=== PATIENT | female | born 1960 | race Caucasian/White ===

== ENCOUNTER 2016-09-29 03:34 | Emergency (ER) | payer SELFPAY ==
[2016-09-29 03:45] VITALS: TEMP 97.5; BMI 33.4
[2016-09-29] MEDS ORDERED: MORPHINE 4 MG/ML INJECTION IV ONE (03:46)
[2016-09-29] MEDS ORDERED: PROMETHAZINE 25 MG/ML VIAL IV ONE (03:46)
[2016-09-29] MEDS ORDERED: NS 1,000 ML IV ONE (03:46)
--- NOTE | 2016-09-29 03:49 | EDPRACDOC ---
- General Information Chief Complaint: Flu-Like Symptoms Stated Complaint: BODYACHES, VOMITING Time Seen by Provider: 09/29/16 03:42 Information Source: Patient Mode Of Arrival: Car Home Medications: Home Medications Pregabalin [Lyrica] 200 mg PO TID 04/17/13 Ciprofloxacin HCl [Cipro] 500 mg PO BID #20 tab 08/23/16 Oxycodone HCl/Acetaminophen [Percocet 5-325 mg Tablet] 1 each PO Q4 #20 tablet 08/23/16 Promethazine [Phenergan] 25 mg PO Q8H PRN #30 tab 08/23/16 Promethazine [Phenergan] 25 mg PO Q6H PRN #10 tab 09/29/16 Sulfamethoxazole/Trimethoprim [Bactrim Ds Tablet] 1 tab PO BID #14 tab 09/29/16 Allergies/Adverse Reactions: Allergies Allergy/AdvReac Type Severity Reaction Status Date / Time hydromorphone HCl Allergy Severe See Verified 09/29/16 03:42 [From Joselyn] Comments - History of Present Illness Onset: Friday noon HPI: PT SAID THAT SHE HAS HAD N/V AND ABD PAIN SINCE YESTERDAY. SHE IS HERE FREQUENTLY FOR SIMILAR. SHE HAD A CT ABD/PELVIS ON 08/23 FOR THE SAME. Symptoms Occured: Reports: Spontaneous Duration: Reports: Intermittent Pain Quality: Reports: Sharp Pain Severity: Moderate Pain Location: Reports: Diffuse History of: Reports: Abdominal Surgery Relevant History of: Reports: Abdominal Surgery Associated Signs & Symptoms: Reports: Nausea, Vomiting Oral Intake: Decreased Urinary Output: Decreased ED Past Medical History - Patient Medical History Neurological History: Reports: Seizures Cardiac History: Reports: Heart Attack (2004), Hypercholesterolemia Psychological History: Denies: Depression Systemic History: Denies: Anemia Additional Past Medical History: CHRONIC PAIN, FIBROMYALGIA Surgical History: Reports: Cholecystectomy, Hysterectomy, Tonsillectomy/ Adnoidectomy - Family Medical History Reports: Hypertension (DAD), Diabetes (MOM, SISTER, DAUGHTER) - Social Medical History Smoking Status: Heavy tobacco smoker (5 or more cigarettes/day or daily pipe/ cigar) ETOH: None Substance Abuse: None Lives In: Home EDM Review of Systems - Review of Systems ROS Negative Except as Marked: Yes All systems reviewed and were negative except as marked Gastrointestinal: Nausea, Pain, Vomiting - Physical Exam Constitutional: Alert (Awake), No apparent distress Oriented to: Time, Person, Place Last recorded Vital Signs: Last Vital Signs Temp 97.5 F 09/29/16 03:42 Pulse 118 09/29/16 03:42 Resp 20 09/29/16 03:42 BP 169/109 H 09/29/16 03:42 Pulse Ox 96 09/29/16 03:42 Oxygen Pulse Oxygen Saturation 96 O2 Device Room Air Oxygen Flow Rate Fraction of Inspired Oxygen ( FIO2) - HEENT Head: Normal ( normocephalic) Eye Exam: Normal (PERRL, EOMI, Sclera white) Oropharynx: Membranes Dry ENT EAC: Normal TMJ: Normal Nose: No Symptoms Reported (septum midline) Neck: Normal (FROM, trachea at midline) - Respiratory/Cardiovascular Respiratory: Normal - CTA Cardiovascular: Tachycardia - GI Auscultation: Normal Palpation: Normal Tenderness: Diffuse, Mild - Musculoskeletal Back: Normal (Non-Tender) Extremities: Normal (Normal tone, Pulses 2+ No cyanosis or edema, FROM) - Integumentary Skin: Normal, Warm, Dry Lymphatics: Normal (no adenopathy) - Neurologic Memory Impaired: Normal Motor Function: Normal (Normal tone, Pulses 2+ No cyanosis or edema, FROM) Cranial Nerve: Normal (CN II-X11 intact sensation, strength 5/5) Cerebellar: Normal Mood Description: Normal Thought: Coherent Perception: Normal - Results 09/29/16 04:05 09/29/16 04:05 - Diagnostic Imaging Abdomen Image interpreted by: Radiologist 1. Unremarkable bowel gas pattern; no free intra-abdominal air seen. Small amount of stool noted in the colon. 2. Mild bibasilar opacities may reflect atelectasis or possibly mild pneumonia. Decision Time to Discharge: 04:55 - Departure Yes I personally saw and evaluated the patient. Disposition: Home Condition: Fair Final Diagnosis: Nausea and vomiting, UTI (urinary tract infection) Instructions: Urinary Tract Infection in Women (ED), Acute Nausea and Vomiting (ED) Education/Counseling Given To: Patient Education/Counseling Given Regarding: Diagnosis, Treatment, Follow Up Referrals: Mitchell Groves MD [Primary Care Provider] - One Week Prescriptions: New Promethazine [Phenergan] 25 mg PO Q6H PRN #10 tab PRN Reason: Nausea/Vomiting Sulfamethoxazole/Trimethoprim [Bactrim Ds Tablet] 1 tab PO BID #14 tab No Action Pregabalin [Lyrica] 200 mg PO TID Ciprofloxacin HCl [Cipro] 500 mg PO BID #20 tab Oxycodone HCl/Acetaminophen [Percocet 5-325 mg Tablet] 1 each PO Q4 #20 tablet Promethazine [Phenergan] 25 mg PO Q8H PRN #30 tab PRN Reason: Nausea/Vomiting
[2016-09-29 04:15] LABS: AUTOMATED BASOPHIL 0.7 % (0-2); AUTOMATED LYMPH 11.1 % (17-44); AUTOMATED MONOCYTE 4.4 % (3-10); AUTOMATED NEUTROPHIL 82.8 % (45-76); MPV 8.7 fL (7.4-10.4)
[2016-09-29 04:25] LABS: BLOOD UREA NITROGEN 12 MG/DL (7-17); CALCIUM 9.9 MG/DL (8.4-10.2); CALCULATED OSMOLALITY 271 MOs/Kg (270-290); CHLORIDE 103 mEq/L (98-107); GLUCOSE 128 MG/DL (70-99); SODIUM LEVEL 140 mEq/L (137-146)
--- NOTE | 2016-09-29 04:40 | DIRPT ---
CLINICAL DATA: Acute onset of generalized abdominal pain, nausea and vomiting. Initial encounter. EXAM: DG ABDOMEN ACUTE W/ 1V CHEST COMPARISON: CT of the abdomen and pelvis performed 08/23/2016 FINDINGS: The lungs are well-aerated. Mild bibasilar opacities may reflect atelectasis or possibly mild pneumonia. There is no evidence of pleural effusion or pneumothorax. The cardiomediastinal silhouette is within normal limits. The visualized bowel gas pattern is unremarkable. Scattered stool and air are seen within the colon; there is no evidence of small bowel dilatation to suggest obstruction. No free intra-abdominal air is identified on the provided upright view. Clips are noted within the right upper quadrant, reflecting prior cholecystectomy. No acute osseous abnormalities are seen; the sacroiliac joints are unremarkable in appearance. IMPRESSION: 1. Unremarkable bowel gas pattern; no free intra-abdominal air seen. Small amount of stool noted in the colon. 2. Mild bibasilar opacities may reflect atelectasis or possibly mild pneumonia. Electronically Signed By: Mj Uribe M.D. On: 09/29/2016 04:38
[2016-09-29 04:55] LABS: LEUKOCYTES/URINE 1+ (NEGATIVE); NITRITE/URINE NEG (NEGATIVE); URINE OCCULT BLOOD 1+ (NEG/TRACE)
[2016-09-29] MEDS ORDERED: PROMETHAZINE 25 MG TAB PO ONE (04:58)
[2016-09-29] MEDS ORDERED: OXYCODONE HCL 5 MG TABLET PO ONE (04:58)
[2016-09-29 05:20] VITALS: BP 168/109; PULSE 86
== END 2016-09-29 05:20 | disposition home or self-care (01) ==
LOC: ED 03:34
DX: N39.0 Urinary tract infection, site not specified (principal)
CPT/HCPCS: 36415; 74022; 80053; 81001; 83690; 85025; 96361; 96374; 96375; 96376; 99283; J2270; J2550; J3490

== ENCOUNTER 2016-09-29 15:42 | Emergency (ER) | payer SELFPAY ==
[2016-09-29 15:43] VITALS: BMI 33.4
[2016-09-29 16:45] VITALS: TEMP 97.8
--- NOTE | 2016-09-29 19:26 | EDPRACDOC ---
- General Information Chief Complaint: Abdominal Pain Stated Complaint: DX. UTI YESTERDAY ABD PAIN VOMITING NO FEVER Time Seen by Provider: 09/29/16 19:26 Information Source: Patient Mode Of Arrival: Car Home Medications: Home Medications Pregabalin [Lyrica] 200 mg PO TID 04/17/13 Levofloxacin [Levaquin] 750 mg PO DAILY #7 tab 09/29/16 Ondansetron HCl [Zofran] 4 mg PO Q8H PRN #15 tab 09/29/16 Promethazine HCl [Phenergan] 25 mg [place] Q8H PRN #12 supp 09/29/16 Promethazine [Phenergan] 25 mg PO Q6H PRN #10 tab 09/29/16 Sulfamethoxazole/Trimethoprim [Bactrim Ds Tablet] 1 tab PO BID #14 tab 09/29/16 Allergies/Adverse Reactions: Allergies Allergy/AdvReac Type Severity Reaction Status Date / Time hydromorphone HCl Allergy Severe See Verified 09/29/16 16:45 [From Dilaudid] Comments - History of Present Illness Onset: 2 days HPI: Pt c/o lower abd pain, n/v x 10-12 episodes in 24 hours. Pt states dx with UTI last night and unable to keep meds down. Denies fever, cp, sob, changes in bowel or bladder, rash. C/o cough. Pain Location: Reports: Suprapubic Pain Context: Reports: Spontaneous Pain Severity: Moderate Pain Quality: Reports: Aching Pain Radiation: Reports: No Radiation Female Abdominal History: Reports: UTI Modifying Factors: improves with: Nothing Female Associated Signs & Symptoms: Reports: Nausea, Vomiting Oral Intake: Decreased Urinary Output: Normal ED Past Medical History - History Reviewed Yes Nurses notes reviewed and agree except as marked - Patient Medical History Neurological History: Reports: Seizures Cardiac History: Reports: Heart Attack (2004), Hypercholesterolemia Psychological History: Denies: Depression Systemic History: Denies: Anemia Additional Past Medical History: CHRONIC PAIN, FIBROMYALGIA Surgical History: Reports: Cholecystectomy, Hysterectomy, Tonsillectomy/ Adnoidectomy - Family Medical History Reports: Hypertension (DAD), Diabetes (MOM, SISTER, DAUGHTER) - Social Medical History Smoking Status: Heavy tobacco smoker (5 or more cigarettes/day or daily pipe/ cigar) ETOH: None Substance Abuse: None EDM Review of Systems - Review of Systems Constitutional: No Symptoms Reported. negative: Fever, Chills, Weakness, Fatigue, Loss of Appetite Ears: No Symptoms Reported. negative: Pain, Hearing Loss, Drainage, Ear Pulling Throat: No Symptoms Reported. negative: Pain, Swelling Nose: No Symptoms Reported. negative: Congestion, Bleeding, Discharge, Injection, Swelling, Deformity, Ecchymosis, Tender, Abrasion, Laceration Mouth: No Symptoms Reported. negative: Pain, Drooling Respiratory: Cough Cardiovascular: No Symptoms Reported. negative: Chest Pain, Palpitations, Syncope, Edema, Orthopnea, PND, Skin Mottling, Cyanosis Gastrointestinal: Nausea, Pain, Vomiting Genitourinary: No Symptoms Reported. negative: Dysuria, Hematuria, Frequency, Discharge, Bleeding, Testicular Pain, Neurological: No Symptoms Reported. negative: Headache, Dizziness, Seizure, Numbness, Weakness, Speech Difficulty, Gait Difficulty Musculoskeletal: No Symptoms Reported. negative: Neck, Chestwall, Ribs, Back, Shoulder, Arm, Elbow, Forearm, Wrist, Hand, Pelvis, Hip, Femur, Knee, Leg, Ankle , Foot Integumentary: No Symptoms Reported. negative: Itching, Rash, Bruising, Wound Allergic/Immunologic: No Symptoms Reported. negative: Hives, Itching Hematologic: No Symptoms Reported. negative: Lymphadenopathy, Easy Bruising, Easy Bleeding Psychiatric: No Symptoms Reported. negative: Anxiety, Depression, Hallucinations, Insomnia, Suicidal - Physical Exam Constitutional: Alert, Distress (mild) Oriented to: Time, Person, Place Last recorded Vital Signs: Last Vital Signs Temp 97.8 F 09/29/16 16:43 Pulse 95 09/29/16 20:49 Resp 18 09/29/16 20:49 BP 156/109 H 09/29/16 20:49 Pulse Ox 94 09/29/16 20:49 Oxygen Pulse Oxygen Saturation 94 O2 Device Room Air Oxygen Flow Rate Fraction of Inspired Oxygen ( FIO2) - HEENT Head: Normal ( normocephalic) Eye Exam: Normal (PERRL, EOMI, Sclera white) Oropharynx: Membranes Dry Tympanic Membrane: Normal ENT EAC: Normal Nose: No Symptoms Reported (septum midline) Neck: Normal (FROM, trachea at midline) - Respiratory/Cardiovascular Respiratory: Normal - CTA (BBS clear to auscultation without adventitious sounds ) Cardiovascular: Tachycardia - GI Auscultation: Normal (NABS) Palpation: Normal (Soft,No rebound or guarding, non distended) Tenderness: Mild, Suprapubic - Musculoskeletal Back: Normal (Non-Tender) Extremities: Normal (Normal tone, Pulses 2+ No cyanosis or edema, FROM) - Integumentary Skin: Normal, Warm, Dry Lymphatics: Normal (no adenopathy) - Neurologic Memory Impaired: Normal Motor Function: Normal (Normal tone, Pulses 2+ No cyanosis or edema, FROM) Mood Description: Normal Perception: Normal - Differential Diagnosis Gastroenteritis, Pneumonia, UTI, Other (pyelonephritis) - Results 09/29/16 20:38 09/29/16 20:38 WBC 5.8 xk/uL (3.8-10.8) 09/29/16 20:38 RBC 4.87 xM/uL (4.20-5.40) 09/29/16 20:38 Hgb 12.6 g/dL (12.0-16.0) 09/29/16 20:38 Hct 38.2 % (36-47) 09/29/16 20:38 MCV 78 fL (81-99) L 09/29/16 20:38 MCH 25.9 pg (27-32) L 09/29/16 20:38 MCHC 33.1 g/dl (33-36) 09/29/16 20:38 RDW 15.8 % (11.5-14.5) H 09/29/16 20:38 Plt Count 191 xk/uL (130-400) 09/29/16 20:38 MPV 8.8 fL (7.4-10.4) 09/29/16 20:38 Neut % (Auto) 64.3 % (45-76) 09/29/16 20:38 Lymph % (Auto) 27.3 % (17-44) 09/29/16 20:38 [place] % (Auto) 7.1 % (3-10) 09/29/16 20:38 Eos % (Auto) 0.9 % (0-5) 09/29/16 20:38 Baso % (Auto) 0.4 % (0-2) 09/29/16 20:38 Absolute Neuts (auto) 3.71 xk/uL (1.7-8.2) 09/29/16 20:38 Absolute Lymphs (auto) 1.57 xk/uL (0.65-4.75) 09/29/16 20:38 Sodium 140 mEq/L (137-146) 09/29/16 20:38 Potassium 3.5 mEq/L (3.5-5.1) 09/29/16 20:38 Chloride 106 mEq/L (98-107) 09/29/16 20:38 Carbon Dioxide 22 mMOL/L (22-33) 09/29/16 20:38 Anion Gap 16 mEq/L (8-16) 09/29/16 20:38 BUN 10 MG/DL (7-17) 09/29/16 20:38 Creatinine 0.90 MG/DL (0.52-1.04) 09/29/16 20:38 Estimated GFR (MDRD) > 60 mL/min (>=60) 09/29/16 20:38 Glucose 103 MG/DL (70-99) H 09/29/16 20:38 Calculated Osmolality 268 MOs/Kg (270-290) L 09/29/16 20:38 Lactic Acid 0.8 mEq/L (0.7-2.1) 09/29/16 20:38 Calcium 9.2 MG/DL (8.4-10.2) 09/29/16 20:38 Total Bilirubin 0.5 MG/DL (0.2-1.3) 09/29/16 20:38 AST 22 IU/L (14-36) 09/29/16 20:38 ALT 30 IU/L (9-52) 09/29/16 20:38 Alkaline Phosphatase 137 IU/L (38-126) H 09/29/16 20:38 Total Protein 7.6 G/DL (6.3-8.2) 09/29/16 20:38 Albumin 4.0 G/DL (3.5-5.0) 09/29/16 20:38 Lab Results 09/29/16 09/29/16 09/29/16 20:38 20:38 20:38 WBC 5.8 RBC 4.87 Hgb 12.6 Hct 38.2 MCV 78 L MCH 25.9 L MCHC 33.1 RDW 15.8 H Plt Count 191 MPV 8.8 Neut % (Auto) 64.3 Lymph % (Auto) 27.3 [place] % (Auto) 7.1 Eos % (Auto) 0.9 Baso % (Auto) 0.4 Absolute Neuts (auto) 3.71 Absolute Lymphs (auto) 1.57 Sodium 140 Potassium 3.5 Chloride 106 Carbon Dioxide 22 Anion Gap 16 BUN 10 Creatinine 0.90 Estimated GFR (MDRD) > 60 Glucose 103 H Calculated Osmolality 268 L Lactic Acid 0.8 Calcium 9.2 Total Bilirubin 0.5 AST 22 ALT 30 Alkaline Phosphatase 137 H Total Protein 7.6 Albumin 4.0 - Diagnostic Imaging Chest Image interpreted by: Radiologist 09/29/16 21:04 IMPRESSION: Hypoventilatory chest. Bibasilar opacities favor atelectasis, however superimposed pneumonia would be difficult to exclude in the medial right lower lobe. There is bronchial thickening. Decision Time to Discharge: 21:17 - Departure Disposition: Home Condition: Good Final Diagnosis: N&V (nausea and vomiting) Qualifiers: Vomiting type: unspecified Vomiting Intractability: non-intractable Qualified Code(s): R11.2 - Nausea with vomiting, unspecified RML pneumonia Qualifiers: Pneumonia type: due to unspecified organism Qualified Code(s): J18.1 - Lobar pneumonia, unspecified organism Instructions: Acute Nausea and Vomiting (ED), Community Acquired Pneumonia (ED) Education/Counseling Given To: Patient Education/Counseling Given Regarding: Diagnosis, Treatment, Follow Up Referrals: Mitchell Groves MD [Primary Care Provider] - One Week Prescriptions: New Levofloxacin [Levaquin] 750 mg PO DAILY #7 tab Ondansetron HCl [Zofran] 4 mg PO Q8H PRN #15 tab PRN Reason: Nausea/Vomiting Promethazine HCl [Phenergan] 25 mg [place] Q8H PRN #12 supp PRN Reason: Nausea/Vomiting No Action Pregabalin [Lyrica] 200 mg PO TID Promethazine [Phenergan] 25 mg PO Q6H PRN #10 tab PRN Reason: Nausea/Vomiting Sulfamethoxazole/Trimethoprim [Bactrim Ds Tablet] 1 tab PO BID #14 tab Additional Instructions: Stop Bactrim. Start Levaquin. Drink sips of Gatorade every 2-3 minutes while awake. Do NOT drink large volumes of fluid at once. If you vomit, take the nausea-vomiting medicine prescribed, wait ~ 30 minutes, and restart the sipping process. Return to the Emergency Department if you think you are getting dehydrated, have persistent abdominal pain that is unrelenting, have worse or different symptoms, or any concerns.
[2016-09-29] MEDS ORDERED: NS 1,000 ML IV ONE (19:27)
[2016-09-29] MEDS ORDERED: ONDANSETRON HCL 4 MG/2 ML VIAL IV ONE (19:27)
[2016-09-29] MEDS ORDERED: MORPHINE 4 MG/ML INJECTION IV ONE (19:37)
[2016-09-29] MEDS ORDERED: NS 1,000 ML IV SCH (20:00)
--- NOTE | 2016-09-29 20:35 | DIRPT ---
CLINICAL DATA: Cough for 2 weeks, vomiting and back pain for 2 days. Increased pain, cough and vomiting today. EXAM: CHEST 2 VIEW COMPARISON: 08/01/2014 FINDINGS: Lung volumes are low. Bibasilar opacities likely atelectasis. This is most significant in the medial right lung base. There is central bronchial thickening. Heart size and mediastinal contours are normal for technique. No pulmonary edema, pleural effusion or pneumothorax. No acute osseous abnormalities are seen. IMPRESSION: Hypoventilatory chest. Bibasilar opacities favor atelectasis, however superimposed pneumonia would be difficult to exclude in the medial right lower lobe. There is bronchial thickening. Electronically Signed By: Ximena Johnson M.D. On: 09/29/2016 20:33
[2016-09-29 20:53] LABS: AUTOMATED BASOPHIL 0.4 % (0-2); AUTOMATED EOSINOPHIL 0.9 % (0-5); AUTOMATED LYMPH 27.3 % (17-44); AUTOMATED MONOCYTE 7.1 % (3-10); AUTOMATED NEUTROPHIL 64.3 % (45-76); MPV 8.8 fL (7.4-10.4)
[2016-09-29 21:09] LABS: BLOOD UREA NITROGEN 10 MG/DL (7-17); CALCIUM 9.2 MG/DL (8.4-10.2); CALCULATED OSMOLALITY 268 MOs/Kg (270-290); CHLORIDE 106 mEq/L (98-107); GLUCOSE 103 MG/DL (70-99); SODIUM LEVEL 140 mEq/L (137-146); TOTAL PROTEIN 7.6 G/DL (6.3-8.2)
[2016-09-29] MEDS ORDERED: PROMETHAZINE 25 MG/ML VIAL IV ONE (21:40)
[2016-09-29 22:11] VITALS: BP 160/102; PULSE 92
== END 2016-09-29 22:14 | disposition home or self-care (01) ==
LOC: EDMC 15:42
DX: J18.1 Lobar pneumonia, unspecified organism (principal); R11.2 Nausea with vomiting, unspecified
CPT/HCPCS: 36415; 71020; 80053; 83605; 85025; 96361; 96374; 96375; 99284; J2270; J2405; J2550

== ENCOUNTER 2016-10-02 03:11 | Emergency (ER) | payer SELFPAY ==
[2016-10-02 03:11] VITALS: BMI 33.4
--- NOTE | 2016-10-02 03:34 | EDPRACDOC ---
- General Information Stated Complaint: NAUSEA & VOMITING Time Seen by Provider: 10/02/16 03:28 Home Medications: Home Medications Pregabalin [Lyrica] 200 mg PO TID 04/17/13 Levofloxacin [Levaquin] 750 mg PO DAILY #7 tab 09/29/16 Ondansetron HCl [Zofran] 4 mg PO Q8H PRN #15 tab 09/29/16 Promethazine HCl [Phenergan] 25 mg [place] Q8H PRN #12 supp 09/29/16 Promethazine [Phenergan] 25 mg PO Q6H PRN #10 tab 09/29/16 Sulfamethoxazole/Trimethoprim [Bactrim Ds Tablet] 1 tab PO BID #14 tab 09/29/16 Allergies/Adverse Reactions: Allergies Allergy/AdvReac Type Severity Reaction Status Date / Time hydromorphone HCl Allergy Severe See Verified 09/29/16 16:45 [From Dilaudid] Comments - History of Present Illness HPI: NAUSEA AND VOMITING SINCE EATING A GRILLED CHEESE FOR LUNG. BEING TREATED FOR UTI (BACTRIM) FOR 3 DAYS. PT HAD N/V FRIDAY WELL. TODAY WAS THE FIRST TIME SHE TRIED TO EAT ANYTHING. PAIN IN EPIGASTRIUM. History of: Reports: UTI ED Past Medical History - History Reviewed Yes Nurses notes reviewed and agree except as marked - Patient Medical History Neurological History: Reports: Seizures Cardiac History: Reports: Heart Attack (2004), Hypercholesterolemia GI/ History: Reports: Urinary Tract Infection Psychological History: Denies: Depression Systemic History: Denies: Anemia Additional Past Medical History: CHRONIC PAIN, FIBROMYALGIA Surgical History: Reports: Cholecystectomy, Hysterectomy, Tonsillectomy/ Adnoidectomy - Family Medical History Reports: Hypertension (DAD), Diabetes (MOM, SISTER, DAUGHTER) - Social Medical History Smoking Status: Heavy tobacco smoker (5 or more cigarettes/day or daily pipe/ cigar) EDM Review of Systems - Review of Systems ROS Negative Except as Marked: Yes All systems reviewed and were negative except as marked Constitutional: No Symptoms Reported Respiratory: No Symptoms Reported Gastrointestinal: Nausea, Pain, Vomiting Neurological: No Symptoms Reported - Physical Exam Constitutional: Alert (Awake), No apparent distress Oriented to: Time, Person, Place Last recorded Vital Signs: Oxygen Pulse Oxygen Saturation O2 Device Oxygen Flow Rate Fraction of Inspired Oxygen ( FIO2) - HEENT Head: Normal ( normocephalic) Eye Exam: Normal (PERRL, EOMI, Sclera white) Oropharynx: Normal (Pharynx:Moist without exudate,Gums-no swelling) Nose: No Symptoms Reported (septum midline) Neck: Normal (FROM, trachea at midline) - Respiratory/Cardiovascular Respiratory: Normal - CTA (BBS clear to auscultation without adventitious sounds ) Cardiovascular: Tachycardia - GI Auscultation: Normal (NABS) Palpation: Normal (Soft,No rebound or guarding, non distended) Tenderness: Non tender Hayes's Sign: Negative - Musculoskeletal Back: Normal (Non-Tender) Extremities: Normal (Normal tone, Pulses 2+ No cyanosis or edema, FROM) - Integumentary Skin: Normal, Warm, Dry Lymphatics: Normal (no adenopathy) - Neurologic Memory Impaired: Normal Motor Function: Normal (Normal tone, Pulses 2+ No cyanosis or edema, FROM) Cranial Nerve: Normal (CN II-X11 intact sensation, strength 5/5) Cerebellar: Normal Mood Description: Normal Perception: Normal - Results 10/02/16 03:55 10/02/16 03:55 - EKG EKG #1 EKG Time: 03:48 -: Yes EKG interpreted by me Rate: bpm: 93 [place]: Normal Rhythm: NSR Block: None Hypertrophy: None ST: Normal Comments: NORMAL EKG - Departure Yes I personally saw and evaluated the patient. Disposition: Home Condition: Stable Final Diagnosis: Abdominal pain N&V (nausea and vomiting) Qualifiers: Vomiting type: unspecified Vomiting Intractability: non-intractable Qualified Code(s): R11.2 - Nausea with vomiting, unspecified Instructions: Acute Nausea and Vomiting (ED) Referrals: None,No Provider [Primary Care Provider] - One Week Prescriptions: No Action Pregabalin [Lyrica] 200 mg PO TID Promethazine [Phenergan] 25 mg PO Q6H PRN #10 tab PRN Reason: Nausea/Vomiting Sulfamethoxazole/Trimethoprim [Bactrim Ds Tablet] 1 tab PO BID #14 tab Levofloxacin [Levaquin] 750 mg PO DAILY #7 tab Ondansetron HCl [Zofran] 4 mg PO Q8H PRN #15 tab PRN Reason: Nausea/Vomiting Promethazine HCl [Phenergan] 25 mg [place] Q8H PRN #12 supp PRN Reason: Nausea/Vomiting
[2016-10-02] MEDS ORDERED: NS 1,000 ML IV ONE (03:39)
[2016-10-02] MEDS ORDERED: PROMETHAZINE 25 MG/ML VIAL IV ONE (03:39)
[2016-10-02 03:42] VITALS: TEMP 99.3
[2016-10-02 04:07] LABS: MPV 8.8 fL (7.4-10.4)
[2016-10-02 04:21] LABS: BLOOD UREA NITROGEN 15 MG/DL (7-17); CALCIUM 9.6 MG/DL (8.4-10.2); CALCULATED OSMOLALITY 269 MOs/Kg (270-290); CHLORIDE 108 mEq/L (98-107); GLUCOSE 94 mg/dL (70-99); SODIUM LEVEL 139 mEq/L (137-146); TOTAL PROTEIN 7.5 G/DL (6.3-8.2)
[2016-10-02] MEDS ORDERED: MORPHINE 4 MG/ML INJECTION IV ONE (04:29)
[2016-10-02] MEDS ORDERED: ONDANSETRON HCL 4 MG/2 ML VIAL IV ONE (04:53)
[2016-10-02 04:59] LABS: LEUKOCYTES/URINE NEG (NEGATIVE); NITRITE/URINE NEG (NEGATIVE); URINE OCCULT BLOOD NEG (NEG/TRACE); WBC/URINE 0-2 (0-5)
[2016-10-02 05:53] VITALS: BP 148/100; PULSE 86
== END 2016-10-02 05:45 | disposition home or self-care (01) ==
LOC: ED 03:11
DX: R11.2 Nausea with vomiting, unspecified (principal); R10.9 Unspecified abdominal pain
CPT/HCPCS: 36415; 80053; 81001; 85027; 87086; 93005; 96361; 96374; 96375; 99283; J2270; J2405; J2550

== ENCOUNTER 2016-10-04 14:38 | Emergency (ER) | payer SELFPAY ==
[2016-10-04] MEDS ORDERED: ONDANSETRON HCL 4 MG/2 ML VIAL IV ONE (14:44)
[2016-10-04] MEDS ORDERED: SODIUM CHLORIDE 0.9% 3 ML FLUSH FLUSH PRN (14:44)
[2016-10-04] MEDS ORDERED: MORPHINE 4 MG/ML INJECTION IV ONE (14:44)
[2016-10-04 14:47] VITALS: TEMP 98; BMI 33.3
--- NOTE | 2016-10-04 14:52 | EDPRACDOC ---
- General Information Stated Complaint: BACK PAIN N/V Time Seen by Provider: 10/04/16 14:43 Information Source: Patient, Sales Support Coordinator Mode Of Arrival: Ambulance Home Medications: Home Medications Pregabalin [Lyrica] 200 mg PO TID 04/17/13 Sulfamethoxazole/Trimethoprim [Bactrim Ds Tablet] 1 tab PO BID #14 tab 09/29/16 Promethazine [Phenergan] 25 mg PO Q8H PRN #15 tab 10/02/16 Promethazine [Phenergan] 25 mg SD Q6H PRN #12 supp 10/02/16 Ibuprofen [Motrin Ib] 600 mg PO Q6-8H PRN 10/04/16 Ketorolac Tromethamine [Toradol] 10 mg PO Q6H PRN #20 tab 10/04/16 Ondansetron [Zofran Odt] 4 mg PO Q6H #20 tab.rapdis 10/04/16 Allergies/Adverse Reactions: Allergies Allergy/AdvReac Type Severity Reaction Status Date / Time hydromorphone HCl Allergy Severe See Verified 10/04/16 14:46 [From Dilaudid] Comments - History of Present Illness Onset: 1 WK HPI: PT PRESENTS TO ED WITH RT FLANK AND ABD PAIN WITH N/V STATES SHE HAS H/O STONES. PT HAS BEEN SEEN HERE MULTIPLE TIMES FOR ABD PAIN AND UTI AND WAS ON BACTRIM AND LAST URINE WAS GETTING BETTER WITHOUT WBC'S. Pain Location: Reports: Flank (RT) Pain Context: Reports: Spontaneous Pain Severity: Moderate Pain Quality: Reports: Sharp, Stabbing Pain Radiation: Reports: No Radiation Blood Type: Unknown Female Abdominal History: Reports: UTI Female Associated Signs & Symptoms: Reports: Nausea, Vomiting Oral Intake: Normal Urinary Output: Normal - Treatment Prior to ED Arrival Reported Medications/Treatment C T TECH Treated With Medication C T TECH YES Ibuprofen/Acetaminophen (Dose/ MOTRIN 600MG-1300 Time) Medications C T TECH (Medication/ PHENERGAN 25MG-1330 Dose/Time) EMS Treatment BLS IV No ED Past Medical History - History Reviewed Yes Nurses notes reviewed and agree except as marked Travel Outside of [place] in the Last 3 Months?: No - Patient Medical History Neurological History: Reports: Seizures Cardiac History: Reports: Heart Attack (2004), Hypercholesterolemia GI/ History: Reports: Urinary Tract Infection Psychological History: Denies: Depression Systemic History: Denies: Anemia Additional Past Medical History: CHRONIC PAIN, FIBROMYALGIA Surgical History: Reports: Cholecystectomy, Hysterectomy, Tonsillectomy/ Adnoidectomy - Family Medical History Reports: Hypertension (DAD), Diabetes (MOM, SISTER, DAUGHTER) - Social Medical History Smoking Status: Never smoker ETOH: None Substance Abuse: None Lives With: Other Lives In: Home EDM Review of Systems - Review of Systems ROS Negative Except as Marked: Yes All systems reviewed and were negative except as marked Constitutional: No Symptoms Reported. negative: Fever, Chills, Weakness, Fatigue, Loss of Appetite Eyes: No Symptoms Reported. negative: Redness, Blurred Vision, Double Vision, Discharge, Pain, Light Sensitive, Photophobia Ears: No Symptoms Reported. negative: Pain, Hearing Loss, Drainage, Ear Pulling Throat: No Symptoms Reported. negative: Pain, Swelling Nose: No Symptoms Reported. negative: Congestion, Bleeding, Discharge, Injection, Swelling, Deformity, Ecchymosis, Tender, Abrasion, Laceration Mouth: No Symptoms Reported. negative: Pain, Drooling Respiratory: No Symptoms Reported. negative: Cough, Brassy Cough, Barky Cough, Shortness of Breath, Wheezing, Hemoptysis Cardiovascular: No Symptoms Reported. negative: Chest Pain, Palpitations, Syncope, Edema, Orthopnea, PND, Skin Mottling, Cyanosis Gastrointestinal: Nausea, Pain, Vomiting. negative: Constipation, Diarrhea, Formula Intolerance, Melena Genitourinary: Frequency, Flank Pain (RT), Urgency to urinate. negative: Bleeding, Discharge, Hematuria, , Testicular Pain Neurological: No Symptoms Reported. negative: Headache, Dizziness, Seizure, Numbness, Weakness, Speech Difficulty, Gait Difficulty Musculoskeletal: No Symptoms Reported. negative: Neck, Chestwall, Ribs, Back, Shoulder, Arm, Elbow, Forearm, Wrist, Hand, Pelvis, Hip, Femur, Knee, Leg, Ankle , Foot Integumentary: No Symptoms Reported. negative: Itching, Rash, Bruising, Wound Allergic/Immunologic: No Symptoms Reported. negative: Hives, Itching Hematologic: No Symptoms Reported. negative: Lymphadenopathy, Easy Bruising, Easy Bleeding Endocrine: No Symptoms Reported. negative: Weight Gain, Weight Loss Psychiatric: No Symptoms Reported. negative: Anxiety, Depression, Hallucinations, Insomnia, Suicidal - Physical Exam Constitutional: No apparent distress, Alert (Awake) Oriented to: Time, Person, Place Last recorded Vital Signs: Last Vital Signs Temp 98.0 F 10/04/16 14:40 Pulse 89 10/04/16 16:09 Resp 18 10/04/16 16:09 BP 157/91 10/04/16 16:09 Pulse Ox 91 10/04/16 16:09 Oxygen Pulse Oxygen Saturation 91 O2 Device Oxygen Flow Rate Fraction of Inspired Oxygen ( FIO2) - HEENT Head: Normal ( normocephalic) Eye Exam: Normal (PERRL, EOMI, Sclera white) Oropharynx: Normal (Pharynx:Moist without exudate,Gums-no swelling) Tympanic Membrane: Normal ENT EAC: Normal TMJ: Normal Nose: No Symptoms Reported (septum midline) Neck: Normal (FROM, trachea at midline) - Respiratory/Cardiovascular Respiratory: Normal - CTA (BBS clear to auscultation without adventitious sounds ) Cardiovascular: Normal (RRR without murmur, gallop or rub) - GI Auscultation: Normal (NABS) Palpation: Normal (Soft,No rebound or guarding, non distended) Tenderness: Mild, Other (RIGHT SIDED ABDOMEN) Hayes's Sign: Negative - Bladder: Normal - Musculoskeletal Back: Normal (Non-Tender) Extremities: Normal (Normal tone, Pulses 2+ No cyanosis or edema, FROM) - Integumentary Skin: Normal, Warm, Dry Lymphatics: Normal (no adenopathy) - Neurologic Memory Impaired: Normal Motor Function: Normal (Normal tone, Pulses 2+ No cyanosis or edema, FROM) Cranial Nerve: Normal (CN II-X11 intact sensation, strength 5/5) Cerebellar: Normal Mood Description: Normal Perception: Normal - Differential Diagnosis Constipation, Urolithiasis, UTI, Other (COLITIS) - Results 10/04/16 15:15 10/04/16 15:15 WBC 6.9 xk/uL (3.8-10.8) 10/04/16 15:15 RBC 4.80 xM/uL (4.20-5.40) 10/04/16 15:15 Hgb 12.6 g/dL (12.0-16.0) 10/04/16 15:15 Hct 37.9 % (36-47) 10/04/16 15:15 MCV 79 fL (81-99) L 10/04/16 15:15 MCH 26.2 pg (27-32) L 10/04/16 15:15 MCHC 33.2 g/dl (33-36) 10/04/16 15:15 RDW 16.6 % (11.5-14.5) H 10/04/16 15:15 Plt Count 236 xk/uL (130-400) 10/04/16 15:15 MPV 8.8 fL (7.4-10.4) 10/04/16 15:15 Neut % (Auto) 70.4 % (45-76) 10/04/16 15:15 Lymph % (Auto) 22.8 % (17-44) 10/04/16 15:15 Ponce % (Auto) 5.7 % (3-10) 10/04/16 15:15 Eos % (Auto) 0.9 % (0-5) 10/04/16 15:15 Baso % (Auto) 0.2 % (0-2) 10/04/16 15:15 Absolute Neuts (auto) 4.83 xk/uL (1.7-8.2) 10/04/16 15:15 Absolute Lymphs (auto) 1.52 xk/uL (0.65-4.75) 10/04/16 15:15 Sodium 140 mEq/L (137-146) 10/04/16 15:15 Potassium 3.6 mEq/L (3.5-5.1) 10/04/16 15:15 Chloride 108 mEq/L (98-107) H 10/04/16 15:15 Carbon Dioxide 20 mMOL/L (22-33) L 10/04/16 15:15 Anion Gap 16 mEq/L (8-16) 10/04/16 15:15 BUN 10 MG/DL (7-17) 10/04/16 15:15 Creatinine 0.90 MG/DL (0.52-1.04) 10/04/16 15:15 Estimated GFR (MDRD) > 60 mL/min (>=60) 10/04/16 15:15 Glucose 109 mg/dL (70-99) H 10/04/16 15:15 Calculated Osmolality 269 MOs/Kg (270-290) L 10/04/16 15:15 Calcium 9.8 MG/DL (8.4-10.2) 10/04/16 15:15 Total Bilirubin 0.5 MG/DL (0.2-1.3) 10/04/16 15:15 AST 20 IU/L (14-36) 10/04/16 15:15 ALT 25 IU/L (9-52) 10/04/16 15:15 Alkaline Phosphatase 142 IU/L (38-126) H 10/04/16 15:15 Total Protein 7.8 G/DL (6.3-8.2) 10/04/16 15:15 Albumin 4.5 G/DL (3.5-5.0) 10/04/16 15:15 Urine Color Yellow 10/04/16 15:20 Urine Clarity Clear 10/04/16 15:20 Urine pH 6.0 (5.0-8.0) 10/04/16 15:20 Ur Specific [place] 1.005 (1.003-1.035) 10/04/16 15:20 Urine Protein Neg (NEG/TRACE) 10/04/16 15:20 Urine Glucose (UA) Neg (NEGATIVE) 10/04/16 15:20 Urine Ketones Neg (NEGATIVE) 10/04/16 15:20 Urine Occult Blood 1+ (NEG/TRACE) H 10/04/16 15:20 Urine Nitrite Neg (NEGATIVE) 10/04/16 15:20 Urine Bilirubin Neg (NEGATIVE) 10/04/16 15:20 Urine Urobilinogen <2.0 MG/DL (0-1) 10/04/16 15:20 Ur Leukocyte Esterase Neg (NEGATIVE) 10/04/16 15:20 Urine RBC 0-2 (0-5) 10/04/16 15:20 Urine WBC 0-2 (0-5) 10/04/16 15:20 Ur Epithelial Cells 1+ 10/04/16 15:20 Urine Bacteria 2+ (NEG/FEW) H 10/04/16 15:20 Urine Opiates Screen Neg (NEGATIVE) 10/04/16 15:20 Ur Oxycodone Screen *positive* (NEGATIVE) H 10/04/16 15:20 Urine Methadone Screen Neg (NEGATIVE) 10/04/16 15:20 Ur Barbiturates Screen Neg (NEGATIVE) 10/04/16 15:20 Ur Tricyclics Screen Neg (NEGATIVE) 10/04/16 15:20 Ur Phencyclidine Scrn Neg (NEGATIVE) 10/04/16 15:20 Ur Amphetamines Screen Neg (NEGATIVE) 10/04/16 15:20 U Methamphetamines Scrn Neg (NEGATIVE) 10/04/16 15:20 Urine MDMA Screen Neg (NEGATIVE) 10/04/16 15:20 U Benzodiazepines Scrn Neg (NEGATIVE) 10/04/16 15:20 Urine Cocaine Screen Neg (NEGATIVE) 10/04/16 15:20 Ur THC Screen Neg (NEGATIVE) 10/04/16 15:20 Lab Results 10/04/16 10/04/16 10/04/16 15:20 15:20 15:15 WBC 6.9 RBC 4.80 Hgb 12.6 Hct 37.9 MCV 79 L MCH 26.2 L MCHC 33.2 RDW 16.6 H Plt Count 236 MPV 8.8 Neut % (Auto) 70.4 Lymph % (Auto) 22.8 Ponce % (Auto) 5.7 Eos % (Auto) 0.9 Baso % (Auto) 0.2 Absolute Neuts (auto) 4.83 Absolute Lymphs (auto) 1.52 Sodium Potassium Chloride Carbon Dioxide Anion Gap BUN Creatinine Estimated GFR (MDRD) Glucose Calculated Osmolality Calcium Total Bilirubin AST ALT Alkaline Phosphatase Total Protein Albumin Urine Color Yellow Urine Clarity Clear Urine pH 6.0 Ur Specific [place] 1.005 Urine Protein Neg Urine Glucose (UA) Neg Urine Ketones Neg Urine Occult Blood 1+ H Urine Nitrite Neg Urine Bilirubin Neg Urine Urobilinogen <2.0 Ur Leukocyte Esterase Neg Urine RBC 0-2 Urine WBC 0-2 Ur Epithelial Cells 1+ Urine Bacteria 2+ H Urine Opiates Screen Neg Ur Oxycodone Screen *positive* H Urine Methadone Screen Neg Ur Barbiturates Screen Neg Ur Tricyclics Screen Neg Ur Phencyclidine Scrn Neg Ur Amphetamines Screen Neg U Methamphetamines Scrn Neg Urine MDMA Screen Neg U Benzodiazepines Scrn Neg Urine Cocaine Screen Neg Ur THC Screen Neg 10/04/16 15:15 WBC RBC Hgb Hct MCV MCH MCHC RDW Plt Count MPV Neut % (Auto) Lymph % (Auto) Ponce % (Auto) Eos % (Auto) Baso % (Auto) Absolute Neuts (auto) Absolute Lymphs (auto) Sodium 140 Potassium 3.6 Chloride 108 H Carbon Dioxide 20 L Anion Gap 16 BUN 10 Creatinine 0.90 Estimated GFR (MDRD) > 60 Glucose 109 H Calculated Osmolality 269 L Calcium 9.8 Total Bilirubin 0.5 AST 20 ALT 25 Alkaline Phosphatase 142 H Total Protein 7.8 Albumin 4.5 Urine Color Urine Clarity Urine pH Ur Specific [place] Urine Protein Urine Glucose (UA) Urine Ketones Urine Occult Blood Urine Nitrite Urine Bilirubin Urine Urobilinogen Ur Leukocyte Esterase Urine RBC Urine WBC Ur Epithelial Cells Urine Bacteria Urine Opiates Screen Ur Oxycodone Screen Urine Methadone Screen Ur Barbiturates Screen Ur Tricyclics Screen Ur Phencyclidine Scrn Ur Amphetamines Screen U Methamphetamines Scrn Urine MDMA Screen U Benzodiazepines Scrn Urine Cocaine Screen Ur THC Screen - Diagnostic Imaging CT URO Image interpreted by: Radiologist 10/04/16 17:01 IMPRESSION: No cause of the presenting symptoms is identified. No evidence of urinary tract stone disease or other pathology. No evidence of acute bowel pathology. Atherosclerosis of the aorta and its branch vessels . Decision Time to Discharge: 17:01 - Departure Disposition: Home Condition: Stable Final Diagnosis: Abdominal pain Qualifiers: Abdominal location: unspecified location Qualified Code(s): R10.9 - Unspecified abdominal pain Instructions: Non-pharmacological Pain Management Therapies for Adults (GEN), Abdominal Pain (ED) Education/Counseling Given To: Patient Education/Counseling Given Regarding: Diagnosis, Treatment, Prognosis, Follow Up Referrals: None,No Provider [Primary Care Provider] - One Week Prescriptions: New Ketorolac Tromethamine [Toradol] 10 mg PO Q6H PRN #20 tab PRN Reason: Pain Ondansetron [Zofran Odt] 4 mg PO Q6H #20 tab.rapdis No Action Pregabalin [Lyrica] 200 mg PO TID Sulfamethoxazole/Trimethoprim [Bactrim Ds Tablet] 1 tab PO BID #14 tab Promethazine [Phenergan] 25 mg SD Q6H PRN #12 supp PRN Reason: Nausea/Vomiting Promethazine [Phenergan] 25 mg PO Q8H PRN #15 tab PRN Reason: Nausea/Vomiting Ibuprofen [Motrin Ib] 600 mg PO Q6-8H PRN PRN Reason: Pain
[2016-10-04 15:24] LABS: AUTOMATED BASOPHIL 0.2 % (0-2); AUTOMATED EOSINOPHIL 0.9 % (0-5); AUTOMATED LYMPH 22.8 % (17-44); AUTOMATED MONOCYTE 5.7 % (3-10); AUTOMATED NEUTROPHIL 70.4 % (45-76); MPV 8.8 fL (7.4-10.4)
[2016-10-04 15:31] LABS: ALL NEG? NO
[2016-10-04] MEDS: NS 1,000 ML IV SCH ×2 (15:32→16:58)
[2016-10-04 15:41] LABS: BLOOD UREA NITROGEN 10 MG/DL (7-17); CALCIUM 9.8 MG/DL (8.4-10.2); CALCULATED OSMOLALITY 269 MOs/Kg (270-290); CHLORIDE 108 mEq/L (98-107); GLUCOSE 109 mg/dL (70-99); SODIUM LEVEL 140 mEq/L (137-146); TOTAL PROTEIN 7.8 G/DL (6.3-8.2)
[2016-10-04 15:42] LABS: MDMA* NEG (NEGATIVE); METHAMPHETAMINES NEG (NEGATIVE); OXYCODONE *POSITIVE* (NEGATIVE)
--- NOTE | 2016-10-04 15:45 | DIRPT ---
CLINICAL DATA: Right flank and abdominal pain extending to the right lower quadrant. Dysuria. Symptoms of 1 week duration. EXAM: CT ABDOMEN AND PELVIS WITHOUT CONTRAST TECHNIQUE: Multidetector CT imaging of the abdomen and pelvis was performed following the standard protocol without IV contrast. COMPARISON: Radiography 09/29/2016. CT 08/23/2016. FINDINGS: There is scarring at the left lung base. No pleural or pericardial fluid. The liver has normal appearance without focal lesions or biliary ductal dilatation. No calcified gallstones. The spleen is normal. The pancreas is normal. The adrenal glands are normal. The kidneys are normal without evidence of cyst, stone, mass or hydronephrosis. No stones seen passing within the ureter. There is atherosclerosis of the aorta and its branch vessels but no aneurysm. The IVC is normal. No retroperitoneal mass or lymphadenopathy. No free intraperitoneal fluid or air. No evidence of inflamed appendix. There is been previous hysterectomy. Bladder appears normal. There is mild spinal curvature but no acute bone finding. IMPRESSION: No cause of the presenting symptoms is identified. No evidence of urinary tract stone disease or other pathology. No evidence of acute bowel pathology. Atherosclerosis of the aorta and its branch vessels . Electronically Signed By: Kermit Gtz M.D. On: 10/04/2016 15:42
[2016-10-04 15:48] LABS: LEUKOCYTES/URINE NEG (NEGATIVE); NITRITE/URINE NEG (NEGATIVE); RBC/URINE 0-2 (0-5); URINE OCCULT BLOOD 1+ (NEG/TRACE); WBC/URINE 0-2 (0-5)
[2016-10-04 17:18] VITALS: BP 155/88; PULSE 85
[2016-10-04] MEDS ORDERED: SODIUM CHLORIDE 0.9% 3 ML FLUSH FLUSH SCH (18:00)
== END 2016-10-04 17:20 | disposition home or self-care (01) ==
LOC: ED 14:38
DX: R10.9 Unspecified abdominal pain (principal)
CPT/HCPCS: 36415; 74176; 80053; 80307; 81001; 85025; 96361; 96374; 96375; 99284; J2270; J2405